=== PATIENT | female | born 1950 | race Caucasian/White ===

== ENCOUNTER 2016-09-26 16:51 | Observation (INO) | payer OTHER, BC ==
[~2016-09-26] VITALS: Ht 167.6 cm; Wt 58.0 kg
[2016-09-26 17:37] LABS: HEMATOCRIT 43.2 % (36.0-46.0); MCH 30.6 PG (29.0-34.0); MCHC 34.7 G/DL (30.0-36.0); MCV 88.2 FL (83-99); MEAN PLAT.VOLUME 9.5 uM^3 (9.5-12.4); PLATELET COUNT 284 K/uL (156-360); RBC DIS.WIDTH-CV 12.5 % (11.8-14.6); RBC DIS.WIDTH-SD 39.6 % (39-53)
[2016-09-26 17:45] LABS: CHLORIDE 102 mEq/L (99-109); POTASSIUM 3.7 mEq/L (3.7-5.4); SODIUM 136 mEq/L (136-147)
[2016-09-26 17:46] LABS: GLUCOSE 90 mg/dL (70-99)
[2016-09-26 17:48] LABS: ANION GAP 14 MEQ/L (2-14)
[2016-09-26 17:50] LABS: GFR ESTIMATE (CALCULATED) 48 mL/min/
[2016-09-26 17:51] LABS: UREA NITROGEN (BUN) 14 mg/dL (9-23)
[2016-09-26] MEDS ORDERED: CARTIA XT120 MG PO (19:04)
[2016-09-26 19:40] LABS: MAGNESIUM 2.3 mg/dL (1.3-2.7)
[2016-09-26 19:43] LABS: TOTAL BILIRUBIN 0.4 mg/dL (0.0-1.0)
[2016-09-26 19:45] LABS: ALKALINE PHOSPHATASE 114 IU/L (3-129)
[2016-09-26 19:47] LABS: DIRECT BILIRUBIN 0.2 mg/dL (0.0-0.3)
[2016-09-26 19:56] LABS: CK-MB 1.4 ng/mL (0.0-4.9)
[2016-09-26 20:00] LABS: TROP-I INTERPRETATION NEGATIVE; TROPONIN-I 0.02 ng/mL (0.0-0.30)
[2016-09-26 20:45] LABS: ADD MIUA? YES; BILIRUBIN NEGATIVE; BLOOD NEGATIVE; GLUCOSE (STRIP) NEGATIVE; KETONES NEGATIVE; LEUKOCYTES MODERATE; NITRITE NEGATIVE; PH, URINE 6.5 (5-8); PROTEIN (STRIP) NEGATIVE; SPECIFIC GRAVITY 1.015 (1.000-1.030); UROBILINOGEN 0.2 MG/DL (0.2-1.0)
[2016-09-26 20:46] LABS: CREATINE KINASE 67 IU/L (1-294); TOTAL CK 67 IU/L (1-294)
[2016-09-26 20:52] LABS: COLOR PALE YELLOW ((YELLOW))
[2016-09-26 21:03] LABS: D-DIMER ELISA 0.26 mg/L FEU (< 0.57)
[2016-09-26 21:09] LABS: BACTERIA NONE SEEN /HPF; CASTS NONE SEEN /LPF; CRYSTALS NONE SEEN; EPITHELIAL CELLS RARE /HPF; MUCUS NONE SEEN /LPF; PATHOLOGICAL CAST NONE SEEN; RED BLOOD CELLS 0-5 /HPF (0-5); SMALL ROUND CELL NONE SEEN; YEAST-LIKE CELL NONE SEEN
[2016-09-26] MEDS ORDERED: AMBIEN10 MG PO (21:51)
[2016-09-26] MEDS ORDERED: tramadol (21:51)
[2016-09-27 00:02] LABS: TROP-I INTERPRETATION NEGATIVE; TROPONIN-I < 0.01 ng/mL (0.0-0.30)
[2016-09-27 01:32] VITALS: BP 156/76
[2016-09-27 05:16] VITALS: BP 113/69
[2016-09-27 07:41] VITALS: BP 157/89
[2016-09-27 07:58] LABS: ANION GAP 9 MEQ/L (2-14); CHLORIDE 109 MEQ/L (99-109); GFR ESTIMATE (CALCULATED) > 59 mL/min/; GLUCOSE 103 mg/dL (70-99); HDL CHOLESTEROL 51 MG/DL (Desirable>=50); LDL CHOLESTEROL 122 mg/dL (Desirable<100); NON-HDL CHOLESTEROL 139 mg/dL (Desirable<160); POTASSIUM 4.1 MEQ/L (3.7-5.4); SAMPLE HEMOLYSIS CHECK 0; SAMPLE ICTERIC CHECK 0; SAMPLE LIPEMIA CHECK 0; SODIUM 140 MEQ/L (136-147); TOTAL CHOLESTEROL 190 mg/dL (Desirable<200); TRIGLYCERIDES 86 MG/DL (Normal: <150); UREA NITROGEN (BUN) 8 mg/dL (9-23)
[2016-09-27 09:03] LABS: HEMATOCRIT 36.5 % (36.0-46.0); MCHC 34.8 G/DL (30.0-36.0); MEAN PLAT.VOLUME 9.6 uM^3 (9.5-12.4); PLATELET COUNT 249 K/uL (156-360); RBC DIS.WIDTH-CV 12.9 % (11.8-14.6); RBC DIS.WIDTH-SD 41.4 % (39-53); WHITE BLOOD COUNT 3.4 K/uL (4.1-10.2)
[2016-09-27 10:24] LABS: TROP-I INTERPRETATION NEGATIVE; TROPONIN-I < 0.01 ng/mL (0.0-0.30)
[2016-09-27 12:02] VITALS: BP 146/95
== END 2016-09-27 12:30 | disposition home or self-care (01) ==
LOC: RME 16:51 → EME 16:51 → EDOF 21:33 → 5WEST 21:33 → EDOF 21:33 → 5WEST 23:04
PROVIDERS: Hospitalist; Nurse Practitioner Adult Health; Physician Assistant
DX: R06.02 Shortness of breath (principal); R41.0 Disorientation, unspecified; R07.9 Chest pain, unspecified; G89.29 Other chronic pain; Z86.79 Personal history of other diseases of the circulatory system; M19.90 Unspecified osteoarthritis, unspecified site; E78.5 Hyperlipidemia, unspecified; J45.909 Unspecified asthma, uncomplicated; Z91.14 Patient's other noncompliance with medication regimen
CPT/HCPCS: 71020; 80048; 80061; 80076; 81003; 82550; 82553; 83735; 84484; 85027; 85379; 93005; 99281; 99285; G0378; J7030

== ENCOUNTER 2018-02-17 19:29 | Emergency (ER) | payer OTHER, BC ==
[~2018-02-17] VITALS: Ht 167.6 cm; Wt 72.0 kg
[~2018-02-17 19:29] MED LIST: AMBIEN10 MG PO; CARTIA XT120 MG PO; tramadol
[2018-02-17 23:54] VITALS: BP 137/76
== END 2018-02-17 23:55 | disposition home or self-care (01) ==
LOC: EME → EDBD 19:29 → EME 19:29
PROC: 0JQ10ZZ Repair Face Subcutaneous Tissue and Fascia, Open Approach (ICD-10-PCS; principal; 2018-02-17)
DX: S01.81XA Laceration without foreign body of other part of head, initial encounter (principal); W01.10XA Fall on same level from slipping, tripping and stumbling with subsequent striking against unspecified object, initial encounter; Y93.H2 Activity, gardening and landscaping; Y92.007 Garden or yard of unspecified non-institutional (private) residence as the place of occurrence of the external cause; I10 Essential (primary) hypertension; J45.909 Unspecified asthma, uncomplicated; F32.9 Major depressive disorder, single episode, unspecified
CPT/HCPCS: 70450; 99281; 99284